=== PATIENT | female | born 1975 | race African-American/Black ===

== ENCOUNTER 2018-11-27 10:00 | Observation (INO) ==
[2018-11-27] MEDS ORDERED: ASPIRIN 325 MG TABLET PO STA (13:25)
[2018-11-27] MEDS ORDERED: METOPROLOL TARTRATE 5 MG/5 ML VIAL IV STA (13:25)
[2018-11-27 13:48] LABS: Basophils % 0.5 % (0.0-0.8); Eosinophils # 0.1 10*3/uL (0.0-0.87); Eosinophils % 1.3 % (0.00-10.9); Hematocrit 33.3 VOL% (35.7-47.0); Hemoglobin 10.2 GM/DL (12.0-16.0); Immature Granulocytes % 0.5 %; Immature Granulocytes Absolute 0.03 #; Lymphocytes # 1.7 10*3/uL (1.4-4.0); Lymphocytes % 27.8 % (21.3-54.2); Mean Corpuscular HGB Conc 30.6 GM/DL (32-36); Mean Corpuscular Volume 72.7 FL (87-102); Mean Platelet Volume 11.9 FL (9.6-12.0); Monocytes % 7.5 % (1.7-12.7); Neutrophils % 62.4 % (38.7-73.9); Platelet Count 236 T/CUMM (130-400); Red Blood Count 4.58 MC/CUMM (3.8-5.5); Red Cell Distribution Width 19.2 % (9.3-17.3); White Blood Count 6.3 T/CUMM (4-12)
[2018-11-27 13:54] LABS: PT Patient Result 10.5 SECS (9.6-12.2); Partial Thromboplastin Time 25.9 SECS (20.8-36.0)
[2018-11-27 13:57] LABS: Albumin 3.6 G/DL (3.4-5.0); Bilirubin,Total 0.5 MG/DL (0.2-1.0); Calcium 8.4 MG/DL (8.5-10.1); Total Protein 7.6 G/DL (6.4-8.3)
[2018-11-27] MEDS ORDERED: hydrALAZINE 20 MG/1 ML VIAL IV STA (15:23)
[2018-11-27 15:31] LABS: Apearance,Urine CLEAR (Clear); Bilirubin,Urine Negative (Negative); Blood, Urine Negative (Negative); Glucose,Urine (UA) Negative (Negative); Ketones,Urine Negative (Negative); Mucus,Urine Occasional /LPF (Occasional); Nitrite,Urine Negative (Negative); Protein,Urine Negative; RBC,Urine 1 /HPF (0-4); Squamous Epithelial Cell,Urine Occasional /HPF (0-10); Urine Color Yellow (Yellow); Urine Specific Gravity 1.011 (1.001-1.035); WBC,Urine 1 /HPF (0-6)
[2018-11-27 15:34] LABS: Barbiturates Screen,Urine Negative (Negative); Benzodiazepines Screen,Urine Negative (Negative); Cannabinoid Screen,Urine Positive (Negative); Opiate Screen,Urine Negative (Negative); Phencyclidine Screen,Urine Negative (Negative)
[2018-11-27] MEDS ORDERED: NITROGLYCERIN SL 0.4 MG TABLET SL PRN (16:03)
[2018-11-27] MEDS ORDERED: FUROSEMIDE 40 MG/4 ML VIAL IV STA (16:03)
[2018-11-27] MEDS ORDERED: MORPHINE 4 MG/1 ML VIAL IV PRN (16:04)
[2018-11-27] MEDS ORDERED: POTASSIUM CHLORIDE 20 MEQ TABLET PO PRN (16:04)
[2018-11-27] MEDS ORDERED: ALUM/MAG/SIMETH/LIDO VISC 1:1 30 ML BOTTLE PO PRN (16:04)
[2018-11-27] MEDS ORDERED: ACETAMINOPHEN 325 MG TABLET PO PRN (16:04)
[2018-11-27] MEDS ORDERED: ONDANSETRON 4 MG/2 ML VIAL IV PRN (16:04)
[2018-11-27] MEDS ORDERED: SODIUM CHLORIDE 0.45% 1,000 ML IV SCH (16:30)
[2018-11-27] MEDS ORDERED: hydrALAZINE 20 MG/1 ML VIAL IV PRN (17:16)
[2018-11-27] MEDS ORDERED: NICOTINE 21 MG/24 HR PATCH TRANSDERM PRN (17:20)
[2018-11-27] MEDS ORDERED: ONDANSETRON 4 MG/2 ML VIAL IV ONE (17:32)
[2018-11-27 17:33] LABS: Hypochromasia 3+
[2018-11-27 17:34] LABS: Microcytosis 2+; Polychromasia Few
[2018-11-27 17:35] LABS: Platelet Estimate Normal
[2018-11-27] MEDS ORDERED: ATORVASTATIN 10 MG TABLET PO SCH (21:00)
[2018-11-27] MEDS: FAMOTIDINE 20 MG TABLET PO SCH (21:39)
[2018-11-27] MEDS: HEPARIN 5,000 UNIT/1 ML VIAL SUBCUT SCH (21:42)
[2018-11-28 05:28] LABS: Basophils % 0.2 % (0.0-0.8); Eosinophils # 0.1 10*3/uL (0.0-0.87); Eosinophils % 0.7 % (0.00-10.9); Hematocrit 32.2 VOL% (35.7-47.0); Hemoglobin 10.4 GM/DL (12.0-16.0); Immature Granulocytes % 0.2 %; Immature Granulocytes Absolute 0.02 #; Lymphocytes # 2.5 10*3/uL (1.4-4.0); Lymphocytes % 28.5 % (21.3-54.2); Mean Corpuscular HGB Conc 32.3 GM/DL (32-36); Mean Corpuscular Volume 70.2 FL (87-102); Mean Platelet Volume 11.9 FL (9.6-12.0); Monocytes % 7.7 % (1.7-12.7); Neutrophils % 62.7 % (38.7-73.9); Platelet Count 249 T/CUMM (130-400); Red Blood Count 4.59 MC/CUMM (3.8-5.5); Red Cell Distribution Width 18.7 % (9.3-17.3); White Blood Count 8.7 T/CUMM (4-12)
[2018-11-28 05:47] LABS: Hypochromasia 1+; Microcytosis 1+; Platelet Estimate Adequate
[2018-11-28 05:54] LABS: Albumin 3.1 G/DL (3.4-5.0); Bilirubin,Total 0.5 MG/DL (0.2-1.0); Calcium 8.4 MG/DL (8.5-10.1); Osmolality,Calculated 281.1 MOS/KG (273-304); Total Protein 7.2 G/DL (6.4-8.3)
[2018-11-28] MEDS: HEPARIN 5,000 UNIT/1 ML VIAL SUBCUT SCH (06:01)
[2018-11-28] MEDS: POTASSIUM CHLORIDE 20 MEQ TABLET PO PRN ×2 (06:10→07:17)
[2018-11-28 06:17] LABS: Risk Ratio 1.92; VLDL CHOLESTEROL 16.6 MG/DL
[2018-11-28 06:28] LABS: Free T4 (Free Thyroxine) 0.94 NG/DL (0.76-1.46); Thyroid Stimulating Hormone 0.805 uIU/ml (0.358-3.74)
[2018-11-28 07:13] VITALS: BP 134/90
[2018-11-28] MEDS: FAMOTIDINE 20 MG TABLET PO SCH (08:15)
[2018-11-28] MEDS ORDERED: METOPROLOL SUCCINATE XL 50 MG TABLET PO SCH (09:00)
[2018-11-28] MEDS ORDERED: LISINOPRIL/HCTZ 20-12.5 MG TABLET PO SCH (09:00)
[2018-11-28] MEDS ORDERED: ASPIRIN CHEW 81 MG TABLET PO SCH (09:00)
[2018-11-28] MEDS ORDERED: INFLUENZA VIRUS VACCINE 0.5 ML SYRINGE IM ONE (10:08)
== END 2018-11-28 10:43 | disposition home or self-care (01) ==
LOC: N.ED 10:00 → INTOOBSV 15:50 → N.EDINP 15:50 → N.5E 16:36
PROVIDERS: ADMIT Internal Medicine; ATTEND Internal Medicine